=== PATIENT | female | born 1975 | race Caucasian/White ===

== ENCOUNTER 2023-07-15 05:33 | Emergency (ER) | payer MEDICAID ==
[~2023-07-15] VITALS: Ht 162.6 cm; Wt 95.5 kg
[~2023-07-15 05:33] MED LIST: HYDR-569 PO; TEG100T PO
[2023-07-15 05:58] VITALS: BP 143/92; TEMP 98.3
--- NOTE | 2023-07-15 06:09 | NUR ---
pt refused covid and flu swabs. dr philippe notified.
[2023-07-15] MEDS ORDERED: MULT-1085 PO (06:14)
[2023-07-15 06:35] LABS: BASOPHILS % (AUTO) 0.5 % (0-1); EOSINOPHILS # (AUTO) 0.3 X10'3 (0-0.9); EOSINOPHILS % (AUTO) 3.5 % (0-6); HEMATOCRIT 43.1 % (35.0-45.0); HEMOGLOBIN 14.6 g/dl (12.0-16.0); LYMPHOCYTES # (AUTO) 1.4 X10'3 (1.1-4.8); LYMPHOCYTES % (AUTO) 17.5 % (21-51); MEAN CORPUSCULAR HEMOGLOBIN 30.3 PG (27.0-31.0); MEAN CORPUSCULAR HGB CONC 33.8 g/dL (33.0-36.5); MEAN CORPUSCULAR VOLUME 89.5 FL (78-98); MEAN PLATELET VOLUME 8.4 FL (7.4-10.4); MONOCYTES # (AUTO) 0.7 X10'3 (0-0.9); MONOCYTES % (AUTO) 9.2 % (2-12); NEUTROPHILS # (AUTO) 5.5 X10'3 (1.8-7.7); NEUTROPHILS % (AUTO) 69.3 % (42-75); PLATELET COUNT 342 X10'3 (140-440); RED BLOOD COUNT 4.82 X10'6 (4.20-5.60); RED CELL DISTRIBUTION WIDTH 13.3 % (11.5-14.5); WHITE BLOOD COUNT 7.9 X10'3 (4.5-11.0)
[2023-07-15 06:43] LABS: ALANINE AMINOTRANSFERASE 24 U/L (12-78); ALBUMIN 3.5 G/DL (3.4-5.0); ALBUMIN/GLOBULIN RATIO 0.6 (1.1-1.5); ALKALINE PHOSPHATASE 94 IU/L (46-116); ANION GAP 9 (8-16); ASPARTATE AMINO TRANSFERASE 18 U/L (10-37); BILIRUBIN,TOTAL 0.4 MG/DL (0.1-1.0); BLOOD UREA NITROGEN 9 MG/DL (7-18); BUN/CREATININE RATIO 9.5 (10.0-20.0); CALCIUM 9.1 MG/DL (8.5-10.1); CHLORIDE 100 MMOL/L (99-107); CREATININE 0.95 MG/DL (0.40-0.90); GLUCOSE 125 MG/DL (70-104); POTASSIUM 3.7 MMOL/L (3.5-5.1); SODIUM 136 MMOL/L (135-145); TOTAL CARBON DIOXIDE 27.2 MMOL/L (24-32); TOTAL PROTEIN 9.4 G/DL (6.4-8.2); eCRCL 63 ML/MIN; eGFR 63 ML/MIN
--- NOTE | 2023-07-15 06:46 | NUR ---
FLU AND COVID SWABS COLLECTED AND SENT TO LAB
[2023-07-15] MEDS ORDERED: ipratropium/albuterol 3ml nebule NEB PRN (07:15)
[2023-07-15 07:35] VITALS: PULSE 102; PULSE 99; RESP 20; RESP 22; O2SAT 99
[2023-07-15] MEDS ORDERED: albuterol 2.5 MG/3 ML nebule ONE (07:38)
[2023-07-15] MEDS ORDERED: albuterol 2.5 MG/3 ML nebule NEB ONE (07:40)
[2023-07-15] MEDS: methylPREDNISolone sod succ 125mg/2ml vial IM ONE ×2 (07:54→08:08)
[2023-07-15] MEDS ORDERED: methylPREDNISolone sod succ 125mg/2ml vial IV ONE (08:15)
--- NOTE | 2023-07-15 08:41 | NUR ---
JOSUE CHAVIRA [phone] IS [facility] [place] AND CALLED FOR MD. FRIEND SENT TO HOSPITALIST.
[2023-07-15] MEDS ORDERED: AZIT250T82 PO (09:09)
[2023-07-15] MEDS ORDERED: METH4TAB81 PO (09:09)
== END 2023-07-15 09:22 | disposition home or self-care (01) ==
LOC: ER 05:34
DX: J45.909 Unspecified asthma, uncomplicated (principal); Z20.822 Contact with and (suspected) exposure to COVID-19; J06.9 Acute upper respiratory infection, unspecified; Z90.49 Acquired absence of other specified parts of digestive tract; Z88.0 Allergy status to penicillin; Z79.2 Long term (current) use of antibiotics; Z79.899 Other long term (current) drug therapy
CPT/HCPCS: 36415; 71045; 80053; 85025; 87502; 87503; 87811; 93005; 96374; 99285; J2930; 94760